=== PATIENT | female | born 1945 | race Caucasian/White ===

== ENCOUNTER 2020-10-26 18:51 | Inpatient (IN) | payer OTHER, MEDICARE ==
[~2020-10-26] VITALS: Ht 160 cm; Wt 45.0 kg
[2020-10-26] MEDS ORDERED: diphenhydrAMINE 50 mg/ml inj IV ONE (18:55)
[2020-10-26] MEDS ORDERED: normal saline 1000ML IV soln IVB ONE (18:55)
[2020-10-26] MEDS ORDERED: haloperidol lactate 5mg/ml inj IM ONE (18:55)
--- NOTE | 2020-10-26 19:28 | NUR ---
[facility] [phone]
[2020-10-26 19:38] LABS: BASOPHILS % (AUTO) 0.5 % (0-1); EOSINOPHILS % (AUTO) 0 % (0-6); HEMATOCRIT 32.3 % (35.0-45.0); HEMOGLOBIN 10.5 g/dl (12.0-16.0); LYMPHOCYTES # (AUTO) 1.5 X10'3 (1.1-4.8); LYMPHOCYTES % (AUTO) 16.9 % (21-51); MEAN CORPUSCULAR HEMOGLOBIN 24.5 PG (27.0-31.0); MEAN CORPUSCULAR HGB CONC 32.5 g/dL (33.0-36.5); MEAN CORPUSCULAR VOLUME 75.4 FL (78-98); MEAN PLATELET VOLUME 6.7 FL (7.4-10.4); MONOCYTES # (AUTO) 0.9 X10'3 (0-0.9); NEUTROPHILS # (AUTO) 6.4 X10'3 (1.8-7.7); NEUTROPHILS % (AUTO) 72.6 % (42-75); PLATELET COUNT 452 X10'3 (140-440); RED BLOOD COUNT 4.28 X10'6 (4.20-5.60); RED CELL DISTRIBUTION WIDTH 19.9 % (11.5-14.5); WHITE BLOOD COUNT 8.8 X10'3 (4.5-11.0)
[2020-10-26 19:42] LABS: CLARITY,URINE CLEAR (Clear); COLOR,URINE YELLOW (Yellow); GLUCOSE, URINE 100 mg/dl (Neg); KETONES,URINE 15 mg/dl (Neg); LEUKOCYTE ESTERASE ,URINE NEGATIVE (Neg); NITRITES, URINE NEGATIVE (Neg); OCCULT BLOOD,URINE NEGATIVE (Neg); PROTEIN,URINE NEGATIVE (Neg); UROBILINOGEN,URINE 0.2 E.U/dL (0.2-1.0)
[2020-10-26 19:47] LABS: UA COLLECTION TYPE STRAIGHT CATH
[2020-10-26 19:52] LABS: URINE AMPHETAMINE SCREEN NEGATIVE (Neg); URINE BARBITUATE SCREEN NEGATIVE (Neg); URINE BENZODIAZEPINES SCREEN NEGATIVE (Neg); URINE CANNABINOID SCREEN NEGATIVE (Neg); URINE COCAINE SCREEN NEGATIVE (Neg); URINE METHADONE SCREEN NEGATIVE (Neg); URINE OPIATE SCREEN NEGATIVE (Neg); URINE PHENCYCLIDINE SCREEN NEGATIVE (Neg)
[2020-10-26 20:18] LABS: ALANINE AMINOTRANSFERASE 30 U/L (12-78); ALKALINE PHOSPHATASE 123 IU/L (46-116); ANION GAP 15 (8-16); ASPARTATE AMINO TRANSFERASE 22 U/L (10-37); BILIRUBIN,TOTAL 0.6 MG/DL (0.1-1.0); BLOOD UREA NITROGEN 28 MG/DL (7-18); CALCIUM 9.9 MG/DL (8.5-10.1); CHLORIDE 86 MMOL/L (99-107); CREATININE 1.12 MG/DL (0.40-0.90); ETHANOL < 0.010 GM/DL (0.0-0.010); GLUCOSE 229 MG/DL (70-104); POTASSIUM 4.9 MMOL/L (3.5-5.1); SODIUM 122 MMOL/L (135-145); TOTAL CARBON DIOXIDE 20.6 MMOL/L (24-32); TOTAL PROTEIN 8.2 G/DL (6.4-8.2); eGFR 48 ML/MIN
--- NOTE | 2020-10-26 20:18 | NUR ---
pt calmer, but continues to cry out and pull at restraints. Noise in the room increases agitation. When room is quiet, pt calms somewhat
[2020-10-26] MEDS ORDERED: CARV-50 PO (20:52)
[2020-10-26] MEDS ORDERED: LEVO100T PO (20:53)
[2020-10-26] MEDS ORDERED: CHOL500050 PO (20:55)
[2020-10-26] MEDS ORDERED: FURO-150 PO (20:56)
[2020-10-26] MEDS ORDERED: potassium Cl 20 mEq SR tablet PO PRN ×2 (21:40)
[2020-10-26] MEDS ORDERED: magnesium 2GM in 50ml NS 50 ML IV PRN (21:40)
[2020-10-26] MEDS ORDERED: magnesium hydroxide 30ml (MOM) UD suspension PO PRN (21:40)
[2020-10-26] MEDS ORDERED: dextrose ORAL solution 15 GM/59 ML bottle PO PRN ×2 (21:40)
[2020-10-26] MEDS ORDERED: potassium Cl 40MEQ/1/2NS 520ml 520 ML IV PRN ×2 (21:40)
[2020-10-26] MEDS ORDERED: mag hydrox/Alum hydrox/simeth 30ml oral suspension PO PRN (21:40)
[2020-10-26] MEDS ORDERED: glucagon, human recombinant 1mg kit SUBCUT PRN (21:40)
[2020-10-26] MEDS ORDERED: ondansetron/PF 4mg/2ml inj IV PRN (21:40)
[2020-10-26] MEDS ORDERED: MESSAGE TO PHARMACY PO ONE (21:40)
[2020-10-26] MEDS ORDERED: dextrose 50%-water 50ml dispensing syringe IV PRN ×2 (21:40)
[2020-10-26] MEDS ORDERED: acetaminophen 325mg tablet PO PRN (21:40)
[2020-10-26] MEDS ORDERED: magnesium 4gm in 100ml NS 100 ML IV PRN (21:40)
[2020-10-26] MEDS: normal saline 1000ml 1,000 ML IV SCH (21:50)
--- NOTE | 2020-10-27 04:21 | NUR ---
Pt agitated and calling for help. Pt assisted on to bed soliz, but she stated she did not want to use it and removed it herself. After several attempt to use bed soliz, restraints were removed and using two person assist pt was assisted to bedsided commode. Pt transferred to hospital bed, reconnected to monitor. Pt much calmer and placed on tab alarm for safety.
--- NOTE | 2020-10-27 04:40 | NUR ---
pt history and med rec incomplete r/t ALOC in patient. Information obtained by EMS and
[2020-10-27] MEDS ORDERED: hydrALAZINE 20mg/ml inj. IV PRN (04:50)
--- NOTE | 2020-10-27 06:32 | NUR ---
ASSUMED CARE OF THE PATIENT. PT IS SLEEPING IN HER ROOM. NO ISSUES AT THIS TIME. BED ALARM IS ON
--- NOTE | 2020-10-27 07:09 | NUR ---
Patient in room PCU 3017. I have received report from the ED and had the opportunity to ask questions and assume patient care. Awaiting patient's arrival to the unit
[2020-10-27 07:45] LABS: BASOPHILS # (AUTO) 0.1 X10'3 (0-0.2); BASOPHILS % (AUTO) 0.9 % (0-1); EOSINOPHILS % (AUTO) 0.1 % (0-6); HEMATOCRIT 30.4 % (35.0-45.0); HEMOGLOBIN 9.9 g/dl (12.0-16.0); LYMPHOCYTES # (AUTO) 1.3 X10'3 (1.1-4.8); LYMPHOCYTES % (AUTO) 17.6 % (21-51); MEAN CORPUSCULAR HEMOGLOBIN 24.7 PG (27.0-31.0); MEAN CORPUSCULAR HGB CONC 32.5 g/dL (33.0-36.5); MEAN CORPUSCULAR VOLUME 76.2 FL (78-98); MEAN PLATELET VOLUME 6.6 FL (7.4-10.4); MONOCYTES % (AUTO) 13.2 % (2-12); NEUTROPHILS % (AUTO) 68.2 % (42-75); PLATELET COUNT 410 X10'3 (140-440); RED BLOOD COUNT 3.99 X10'6 (4.20-5.60); RED CELL DISTRIBUTION WIDTH 19.6 % (11.5-14.5); WHITE BLOOD COUNT 7.3 X10'3 (4.5-11.0)
[2020-10-27 07:59] LABS: ALANINE AMINOTRANSFERASE 24 U/L (12-78); ALBUMIN 3.4 G/DL (3.4-5.0); ALBUMIN/GLOBULIN RATIO 0.9 (1.1-1.5); ALKALINE PHOSPHATASE 108 IU/L (46-116); ANION GAP 9 (8-16); ASPARTATE AMINO TRANSFERASE 18 U/L (10-37); BILIRUBIN,TOTAL 0.5 MG/DL (0.1-1.0); BLOOD UREA NITROGEN 20 MG/DL (7-18); BUN/CREATININE RATIO 21.7 (6.6-38.0); CALCIUM 9.1 MG/DL (8.5-10.1); CHLORIDE 93 MMOL/L (99-107); CREATININE 0.92 MG/DL (0.40-0.90); GLUCOSE 245 MG/DL (70-104); MAGNESIUM 1.9 MG/DL (1.5-2.4); POTASSIUM 4.9 MMOL/L (3.5-5.1); SODIUM 126 MMOL/L (135-145); TOTAL CARBON DIOXIDE 23.6 MMOL/L (24-32); TOTAL PROTEIN 7.3 G/DL (6.4-8.2); eGFR 60 ML/MIN
[2020-10-27] MEDS: K and/or MAG REPLACEMENT MC SCH ×2 (08:00→19:53)
[2020-10-27] MEDS: levoTHYROXINE 100mcg tablet PO SCH (08:38)
[2020-10-27] MEDS: vitamin D (cholecalciferol) 1,000 unit tablet PO SCH (08:38)
[2020-10-27] MEDS: carVEDilol 12.5mg tablet PO SCH (08:38)
[2020-10-27] MEDS: normal saline 1000ml 1,000 ML IV SCH ×2 (08:39→18:32)
[2020-10-27 09:22] LABS: ANISOCYTOSIS 2+; HYPOCHROMASIA 1+; MICROCYTOSIS 1+; PLATELET ESTIMATE NORMAL
[2020-10-27 10:58] LABS: FERRITIN 24 NG/ML (8-252)
[2020-10-27 11:00] VITALS: BP 134/72
[2020-10-27 11:06] LABS: TOTAL IRON BINDING CAPACITY 572 UG/DL (259-388)
[2020-10-27 11:08] LABS: % IRON SATURATION 8 % (11-46); IRON 45 UG/DL (49-151)
--- NOTE | 2020-10-27 14:01 | NUR ---
Page sent to Dr. Henry: PAGER ID: [phone] MESSAGE: [phone] Nataly Mckeon: Patient passed swallow study, is it ok to feed him per their dietary recommendations? Thank you, Carla [phone]
[2020-10-27 15:00] VITALS: BP 141/73
--- NOTE | 2020-10-27 15:10 | NUR ---
DM Consult: A1C 12.5. Pt admit DX metabolic encephalopathy r/t hyponatremia Na 122 on admit now improved to 126 today per EMR. Hyponatremia secondary to dehydration per MD note. Hx T2DM though no meds at home per EMR for DM; noted takes lasix at home as well. RD contacted [facility] since pt PCP is Ryann Silva there per CM note. Per [facility]; pt DM meds include Lantus 12 units HS and humalog 6-[address] notified pharmacy regarding [facility] report and clinical pharmacist currently verifying reported meds w/ outpatient pharmacy for accuracy. Pt ALOC and not appropriate for DM ed at this time but would benefit from ed once more appropriate prior to discharge. Noted BMI 17.8 but no scaled wt yet this admit. To f/u 10/31 for initial assessment. Addendum: 10/27/20 at [address] Amended: Links added.
[2020-10-27] MEDS ORDERED: INSU100I8 SQ (15:16)
[2020-10-27] MEDS ORDERED: INSU300I SQ (15:16)
[2020-10-27] MEDS ORDERED: METH10TA6 PO (15:16)
[2020-10-27] MEDS ORDERED: LEVO137T2 PO (15:16)
[2020-10-27] MEDS ORDERED: DEXL60CA3 PO (15:19)
[2020-10-27] MEDS ORDERED: MULT-1085 PO (15:19)
[2020-10-27] MEDS ORDERED: POTA10TA36 PO (15:19)
[2020-10-27] MEDS ORDERED: ESCI5TAB12 PO (15:21)
[2020-10-27 18:00] VITALS: BP 125/60
--- NOTE | 2020-10-27 18:23 | NUR ---
Problems reprioritized. Patient report given, questions answered & plan of care reviewed with Alexi FRIEND.
--- NOTE | 2020-10-27 18:30 | NUR ---
Patient in room PCU 3017. I have received report from RONNA Aguirre and had the opportunity to ask questions and assume patient care.
[2020-10-27] MEDS: insulin Lispro (HumaLOG) vial - multi-dose SQ SCH ×2 (19:52→21:45)
[2020-10-27] MEDS: enoxaparin 40mg/0.4ml syringe SQ SCH (19:53)
--- NOTE | 2020-10-27 21:30 | NUR ---
Patient in room PCU 3017. I have received report from RONNA Truong and had the opportunity to ask questions and assume patient care.
--- NOTE | 2020-10-27 21:30 | NUR ---
Problems reprioritized. Patient report given, questions answered & plan of care reviewed with RONNA Israel. Patient resting in bed, no signs of distress. Safety measures in place, bed in low and locked position. Call light and personal items within reach.
[2020-10-27] MEDS: insulin glargine (Lantus) pen - multi-dose SQ SCH (21:46)
[2020-10-27 22:00] VITALS: BP 134/80
[2020-10-28 02:00] VITALS: BP 137/66
--- NOTE | 2020-10-28 06:11 | NUR ---
Problems reprioritized. Patient report given, questions answered & plan of care reviewed with RONNA Aguirre.
--- NOTE | 2020-10-28 06:54 | NUR ---
Patient in room PCU 3017. I have received report from Lnidy FRIEND and had the opportunity to ask questions and assume patient care.
[2020-10-28 07:00] VITALS: BP 154/83
[2020-10-28 07:13] LABS: BASOPHILS # (AUTO) 0.1 X10'3 (0-0.2); BASOPHILS % (AUTO) 0.9 % (0-1); EOSINOPHILS # (AUTO) 0.1 X10'3 (0-0.9); EOSINOPHILS % (AUTO) 1.2 % (0-6); HEMATOCRIT 28.5 % (35.0-45.0); LYMPHOCYTES # (AUTO) 1.1 X10'3 (1.1-4.8); MEAN CORPUSCULAR HEMOGLOBIN 24.2 PG (27.0-31.0); MEAN CORPUSCULAR HGB CONC 31.5 g/dL (33.0-36.5); MEAN CORPUSCULAR VOLUME 76.8 FL (78-98); MEAN PLATELET VOLUME 6.6 FL (7.4-10.4); MONOCYTES # (AUTO) 0.8 X10'3 (0-0.9); MONOCYTES % (AUTO) 14.5 % (2-12); NEUTROPHILS # (AUTO) 3.7 X10'3 (1.8-7.7); NEUTROPHILS % (AUTO) 64.4 % (42-75); PLATELET COUNT 390 X10'3 (140-440); RED BLOOD COUNT 3.71 X10'6 (4.20-5.60); WHITE BLOOD COUNT 5.8 X10'3 (4.5-11.0)
[2020-10-28 07:43] LABS: ANISOCYTOSIS 2+; PLATELET ESTIMATE NORMAL
[2020-10-28 07:44] LABS: ELLIPTOCYTES 1+
[2020-10-28 07:45] LABS: MICROCYTOSIS 1+; SCHISTOCYTES FEW
[2020-10-28] MEDS: carVEDilol 12.5mg tablet PO SCH (07:45)
[2020-10-28] MEDS: levoTHYROXINE 100mcg tablet PO SCH (07:46)
[2020-10-28] MEDS: vitamin D (cholecalciferol) 1,000 unit tablet PO SCH (07:46)
[2020-10-28] MEDS: normal saline 1000ml 1,000 ML IV SCH ×2 (07:47→13:50)
[2020-10-28 07:48] LABS: ALANINE AMINOTRANSFERASE 25 U/L (12-78); ALBUMIN 3.3 G/DL (3.4-5.0); ALBUMIN/GLOBULIN RATIO 0.9 (1.1-1.5); ALKALINE PHOSPHATASE 100 IU/L (46-116); ANION GAP 9 (8-16); ASPARTATE AMINO TRANSFERASE 16 U/L (10-37); BILIRUBIN,TOTAL 0.4 MG/DL (0.1-1.0); BLOOD UREA NITROGEN 23 MG/DL (7-18); BUN/CREATININE RATIO 24.2 (6.6-38.0); CALCIUM 9.4 MG/DL (8.5-10.1); CHLORIDE 101 MMOL/L (99-107); CREATININE 0.95 MG/DL (0.40-0.90); GLUCOSE 118 MG/DL (70-104); PHOSPHORUS 3.7 MG/DL (2.3-4.5); POTASSIUM 4.5 MMOL/L (3.5-5.1); SODIUM 135 MMOL/L (135-145); TOTAL PROTEIN 6.9 G/DL (6.4-8.2); eGFR 58 ML/MIN
[2020-10-28] MEDS: K and/or MAG REPLACEMENT MC SCH ×2 (08:00→20:00)
[2020-10-28 11:00] VITALS: BP 145/77
[2020-10-28] MEDS: insulin Lispro (HumaLOG) vial - multi-dose SQ SCH ×2 (13:24→21:05)
[2020-10-28] MEDS ORDERED: sodium ferric gluc complex inj 125 MG in normal saline 100ml IV soln 90 ML IV ONE (18:00)
--- NOTE | 2020-10-28 18:16 | NUR ---
Problems reprioritized. Patient report given, questions answered & plan of care reviewed with Alexi FRIEND.
--- NOTE | 2020-10-28 18:30 | NUR ---
Patient in room PCU 3017. I have received report from RONNA Aguirre and had the opportunity to ask questions and assume patient care.
[2020-10-28 20:35] LABS: OCCULT BLOOD STOOL NEGATIVE (Neg)
[2020-10-28] MEDS: insulin glargine (Lantus) pen - multi-dose SQ SCH (21:07)
[2020-10-28] MEDS: enoxaparin 40mg/0.4ml syringe SQ SCH (21:10)
[2020-10-28 22:00] VITALS: BP 134/82
--- NOTE | 2020-10-28 23:37 | NUR ---
Paged Dr. Tristan. RE: ContrerasReuben rm: [phone]. ETOH/Pancreatitis patient pulling on lines, getting out of bed, ALOC. Can we have an order for restraints? No sitter available at this time. Alexi [phone] Addendum: 10/28/20 at 2337 by Alexi Reeves RN Wrong patient.
[2020-10-29] MEDS: normal saline 1000ml 1,000 ML IV SCH ×3 (01:15→19:35)
[2020-10-29 02:00] VITALS: BP 132/70
[2020-10-29 06:12] LABS: BASOPHILS # (AUTO) 0.1 X10'3 (0-0.2); BASOPHILS % (AUTO) 0.5 % (0-1); EOSINOPHILS # (AUTO) 0.1 X10'3 (0-0.9); EOSINOPHILS % (AUTO) 0.8 % (0-6); HEMATOCRIT 27.5 % (35.0-45.0); HEMOGLOBIN 8.7 g/dl (12.0-16.0); LYMPHOCYTES # (AUTO) 1.9 X10'3 (1.1-4.8); LYMPHOCYTES % (AUTO) 16.1 % (21-51); MEAN CORPUSCULAR HEMOGLOBIN 24.1 PG (27.0-31.0); MEAN CORPUSCULAR HGB CONC 31.7 g/dL (33.0-36.5); MEAN CORPUSCULAR VOLUME 75.9 FL (78-98); MEAN PLATELET VOLUME 6.9 FL (7.4-10.4); MONOCYTES # (AUTO) 1.1 X10'3 (0-0.9); MONOCYTES % (AUTO) 9.3 % (2-12); NEUTROPHILS # (AUTO) 8.8 X10'3 (1.8-7.7); NEUTROPHILS % (AUTO) 73.3 % (42-75); PLATELET COUNT 419 X10'3 (140-440); RED BLOOD COUNT 3.63 X10'6 (4.20-5.60); RED CELL DISTRIBUTION WIDTH 20.5 % (11.5-14.5)
--- NOTE | 2020-10-29 06:28 | NUR ---
Problems reprioritized. Patient report given, questions answered & plan of care reviewed with RONNA Jules. Safety measures in place, bed in low and locked position. Call light and personal items within reach. Will continue to monitor for remainder of shift.
[2020-10-29 06:30] LABS: ALANINE AMINOTRANSFERASE 23 U/L (12-78); ALBUMIN 3.1 G/DL (3.4-5.0); ALBUMIN/GLOBULIN RATIO 0.9 (1.1-1.5); ALKALINE PHOSPHATASE 104 IU/L (46-116); ANION GAP 8 (8-16); ASPARTATE AMINO TRANSFERASE 14 U/L (10-37); BILIRUBIN,TOTAL 0.3 MG/DL (0.1-1.0); BLOOD UREA NITROGEN 24 MG/DL (7-18); BUN/CREATININE RATIO 28.9 (6.6-38.0); CALCIUM 8.8 MG/DL (8.5-10.1); CHLORIDE 98 MMOL/L (99-107); CREATININE 0.83 MG/DL (0.40-0.90); GLUCOSE 159 MG/DL (70-104); MAGNESIUM 1.8 MG/DL (1.5-2.4); PHOSPHORUS 3.4 MG/DL (2.3-4.5); POTASSIUM 4.3 MMOL/L (3.5-5.1); SODIUM 130 MMOL/L (135-145); TOTAL PROTEIN 6.6 G/DL (6.4-8.2); eGFR 67 ML/MIN
[2020-10-29 07:00] VITALS: BP 141/79
[2020-10-29] MEDS: levoTHYROXINE 100mcg tablet PO SCH (07:56)
[2020-10-29] MEDS: vitamin D (cholecalciferol) 1,000 unit tablet PO SCH (07:58)
[2020-10-29] MEDS: K and/or MAG REPLACEMENT MC SCH ×2 (08:00→19:43)
[2020-10-29] MEDS: sodium ferric gluc complex inj 125 MG in normal saline 100ml IV soln 90 ML IV SCH (08:20)
[2020-10-29 08:41] LABS: ANISOCYTOSIS 3+; MICROCYTOSIS 1+; PLATELET ESTIMATE NORMAL
[2020-10-29 08:43] LABS: ELLIPTOCYTES 1+; SCHISTOCYTES FEW
[2020-10-29 08:49] LABS: BURR CELLS 1+
[2020-10-29] MEDS: carvedilol 6.25mg tablet PO SCH (09:14)
[2020-10-29] MEDS: insulin Lispro (HumaLOG) vial - multi-dose SQ SCH ×3 (10:34→19:34)
[2020-10-29 11:00] VITALS: BP 112/61
[2020-10-29] MEDS: sodium chloride 1gm tablet PO SCH ×4 (13:00→19:36)
--- NOTE | 2020-10-29 14:41 | NUR ---
promotional table spacer PAGER ID: [phone] MESSAGE: Linda Riddle. Pt requesting Tylenol for pain, can I put that order in? Dhara [phone]
[2020-10-29 17:35] VITALS: BP 133/51
[2020-10-29 18:00] VITALS: BP 148/65
[2020-10-29] MEDS ORDERED: acetaminophen 325mg tablet PO PRN (18:00)
--- NOTE | 2020-10-29 18:25 | NUR ---
Patient in room PCU 3017. I have received report from Giovanna, and had the opportunity to ask questions and assume patient care.
[2020-10-29] MEDS: enoxaparin 40mg/0.4ml syringe SQ SCH (19:36)
[2020-10-29] MEDS: insulin glargine (Lantus) pen - multi-dose SQ SCH (21:18)
[2020-10-29 22:00] VITALS: BP 157/79
[2020-10-30 02:00] VITALS: BP 147/77
[2020-10-30] MEDS: normal saline 1000ml 1,000 ML IV SCH (05:50)
[2020-10-30 06:00] VITALS: BP 175/81
--- NOTE | 2020-10-30 06:03 | NUR ---
Problems reprioritized. Patient report given, questions answered & plan of care reviewed with Giovanna.
--- NOTE | 2020-10-30 06:37 | NUR ---
Patient in room PCU 3017. I have received report from Rafat FRIEND and had the opportunity to ask questions and assume patient care.
[2020-10-30] MEDS: carvedilol 6.25mg tablet PO SCH (07:05)
[2020-10-30] MEDS: vitamin D (cholecalciferol) 1,000 unit tablet PO SCH (07:05)
[2020-10-30] MEDS: sodium chloride 1gm tablet PO SCH ×2 (07:05→12:59)
[2020-10-30] MEDS: levoTHYROXINE 100mcg tablet PO SCH (07:05)
[2020-10-30] MEDS: sodium ferric gluc complex inj 125 MG in normal saline 100ml IV soln 90 ML IV SCH (07:45)
[2020-10-30 07:51] LABS: BASOPHILS # (AUTO) 0.1 X10'3 (0-0.2); BASOPHILS % (AUTO) 0.9 % (0-1); EOSINOPHILS # (AUTO) 0.1 X10'3 (0-0.9); EOSINOPHILS % (AUTO) 1.3 % (0-6); HEMATOCRIT 29.4 % (35.0-45.0); HEMOGLOBIN 9.5 g/dl (12.0-16.0); LYMPHOCYTES # (AUTO) 1.7 X10'3 (1.1-4.8); LYMPHOCYTES % (AUTO) 22.1 % (21-51); MEAN CORPUSCULAR HEMOGLOBIN 24.8 PG (27.0-31.0); MEAN CORPUSCULAR HGB CONC 32.2 g/dL (33.0-36.5); MEAN CORPUSCULAR VOLUME 77.2 FL (78-98); MEAN PLATELET VOLUME 6.7 FL (7.4-10.4); MONOCYTES # (AUTO) 0.7 X10'3 (0-0.9); MONOCYTES % (AUTO) 8.8 % (2-12); NEUTROPHILS # (AUTO) 5.1 X10'3 (1.8-7.7); NEUTROPHILS % (AUTO) 66.9 % (42-75); PLATELET COUNT 422 X10'3 (140-440); RED BLOOD COUNT 3.81 X10'6 (4.20-5.60); RED CELL DISTRIBUTION WIDTH 20.2 % (11.5-14.5); WHITE BLOOD COUNT 7.6 X10'3 (4.5-11.0)
[2020-10-30] MEDS: K and/or MAG REPLACEMENT MC SCH (08:00)
[2020-10-30 08:16] LABS: ALANINE AMINOTRANSFERASE 24 U/L (12-78); ALBUMIN 3.2 G/DL (3.4-5.0); ALBUMIN/GLOBULIN RATIO 0.8 (1.1-1.5); ALKALINE PHOSPHATASE 114 IU/L (46-116); ANION GAP 11 (8-16); ASPARTATE AMINO TRANSFERASE 15 U/L (10-37); BILIRUBIN,TOTAL 0.2 MG/DL (0.1-1.0); BLOOD UREA NITROGEN 22 MG/DL (7-18); BUN/CREATININE RATIO 28.6 (6.6-38.0); CALCIUM 9.6 MG/DL (8.5-10.1); CHLORIDE 98 MMOL/L (99-107); CREATININE 0.77 MG/DL (0.40-0.90); GLUCOSE 157 MG/DL (70-104); MAGNESIUM 1.8 MG/DL (1.5-2.4); PHOSPHORUS 3.8 MG/DL (2.3-4.5); POTASSIUM 4.3 MMOL/L (3.5-5.1); SODIUM 131 MMOL/L (135-145); eGFR 73 ML/MIN
[2020-10-30 08:37] LABS: PLATELET ESTIMATE NORMAL
[2020-10-30 08:38] LABS: ANISOCYTOSIS 3+; HYPOGRANULAR PLATELETS FEW; MICROCYTOSIS 1+; SCHISTOCYTES 1+
[2020-10-30] MEDS: insulin Lispro (HumaLOG) vial - multi-dose SQ SCH ×2 (09:21→13:01)
[2020-10-30] MEDS ORDERED: SODI1TAB2 PO (11:03)
[2020-10-30] MEDS ORDERED: FERR325T28 PO (11:04)
[2020-10-30] MEDS ORDERED: ASCO-134 PO (11:04)
--- NOTE | 2020-10-30 13:54 | NUR ---
F/u 10/30: Pt seen by RD for written/verbal DM ed w/ RD contact information provided. RD reviewed carb portion sizing, appropriate snack options, importance of protein foods, nutrition facts labels, and types of carbs. Pt reports biggest issue is sweet tooth and is frequently hungry; RD reviewed lower carb sweet options as well as strategies to improve satiety and appropriate snacks. Pt reports taking meds per Rx using sliding scale and Januvia 14 units HS though Lantus 12 units HS reported by care provider office; RD encouraged pt to f/u w/ PCP regarding medication dosages/adjustments to optimize A1C and Glu coverage. Pt unable to read given vision issues though can read; RD encouraged pt to contact dietitian's office if further questions/concerns. Addendum: 10/30/20 at [address] Amended: Links added.
--- NOTE | 2020-10-30 15:44 | NUR ---
Patient discharged home at 1437. New RX was faxed to pharmacy, patient reviewed discharge packet prior to signing, all belongings sent home with patient. PIV removed, tele off, wheeled down by staff and left via private vehicle with Edy.
== END 2020-10-30 14:37 | disposition home or self-care (01) | DRG 640 ==
LOC: ER 18:52 → ED HOLD 21:45 → PCU 3S 10-27 07:02
PROVIDERS: ADMIT Family Medicine; ATTEND Family Medicine
DX: E87.1 Hypo-osmolality and hyponatremia (principal); G93.41 Metabolic encephalopathy; D50.9 Iron deficiency anemia, unspecified; E03.9 Hypothyroidism, unspecified; E11.65 Type 2 diabetes mellitus with hyperglycemia; E86.0 Dehydration; Z88.8 Allergy status to other drugs, medicaments and biological substances
CPT/HCPCS: 36415; 70450; 71045; 80053; 80305; 80320; 81003; 82272; 82728; 82948; 83036; 83540; 83550; 83605; 83735; 84100; 84443; 85008; 85025; 87040; 87081; 92508; 92616; 93005; 93306; 93308; 96372; 96374; 97116; 97161; 97530; 99285; G0378; J1200; J1630; J1650; J1815; J2916; J7030